=== PATIENT | male | born 1950 | race Caucasian/White ===

== ENCOUNTER 2019-05-05 08:33 | Day surgery (SDC) | payer MEDICARE, OTHER ==
[2019-05-05] MEDS ORDERED: MIDAZOLAM 2 MG/2 ML VIAL IVP ONE (08:34)
[2019-05-05] MEDS ORDERED: fentaNYL 250 MCG/5 ML VIAL IVP ONE (08:34)
[2019-05-05] MEDS ORDERED: LACTATED RINGERS 1,000 ML IV ONE (08:55)
[2019-05-05 13:02] VITALS: BP 138/84
== END 2019-05-05 08:34 | disposition home or self-care (01) ==
LOC: SDS 08:33
PROVIDERS: ATTEND Surgery
PROC: 0DBP8ZZ Excision of Rectum, Via Natural or Artificial Opening Endoscopic (ICD-10-PCS; principal; 2019-05-05 10:30)
DX: Z12.11 Encounter for screening for malignant neoplasm of colon (principal); K62.1 Rectal polyp; K57.30 Diverticulosis of large intestine without perforation or abscess without bleeding; K64.8 Other hemorrhoids; I10 Essential (primary) hypertension; J44.9 Chronic obstructive pulmonary disease, unspecified; Z85.46 Personal history of malignant neoplasm of prostate
CPT/HCPCS: 45380; J3010; J7120

== ENCOUNTER 2023-01-30 10:19 | Outpatient (CLI) | payer MEDICARE, OTHER ==
--- NOTE | 2023-01-30 10:48 | XRAY Report ---
PROCEDURE: Calcaneus RT INDICATIONS: ACUTE RT HEAD PX TECHNIQUE: Two views of the calcaneus were acquired. COMPARISON: None FINDINGS: Bones: No fractures or dislocations. No suspicious bony lesions. Soft tissues: No suspicious calcifications. Achilles tendon appears normal. IMPRESSION: No acute fracture. No osseous lesion. If symptoms and/or clinical suspicion for pathology continue, f urther assessment with repeat plain films, or advanced imaging (e.g., CT, MRI, or bone scan) is recom mended for further assessment. Reviewed by: Segundo Vinson MD on 01/30/2023 10:47 AM PDT Approved by: Segundo Vinson MD on 01/30/2023 10:47 AM PDT Station ID: [id number]
== END 2023-01-30 10:20 | disposition home or self-care (01) ==
LOC: DI 10:19
PROVIDERS: ATTEND Podiatrist
DX: M79.671 Pain in right foot (principal)